=== PATIENT | male | born 1955 | race Caucasian/White ===

== ENCOUNTER 2019-02-01 12:55 | Day surgery (SDC) | payer BC, OTHER ==
[~2019-02-01] VITALS: Ht 188 cm; Wt 105.5 kg
[~2019-02-01 12:55] MED LIST: BENAZEPRIL; METOPROLOL
[2019-02-01 14:23] VITALS: Ht 188 cm; Wt 105.5 kg
[2019-02-01] MEDS ORDERED: CARVEDILOL (15:00)
[2019-02-01] MEDS ORDERED: AMLODIPINE (15:00)
[2019-02-01 15:15] VITALS: BP 143/90; PULSE 68; RESP 20
--- NOTE | 2019-02-01 16:14 | PREAC ---
Date/Time of Note Date/Time of Note DATE: 02/01/19 TIME: 16:12 Anesthesia Eval and Record Evaluation Time Pre-Procedure Interview DATE: 02/01/19 TIME: 16:12 Age 63 Sex male NPO: 8 hrs Preoperative diagnosis abdominal pain, N/V Planned procedure EGD Past Medical History Past Medical History: Includes Cardio: HTN, Dyslipidemia GI: Morbid obesity Surgery & Anesthesia Issues No known issue Meds Anticoagulation: No Beta Dennis within 24 hr: Yes Reported Medications [Amlodipine] No Conflict Check 02/01/19 [Carvedilol] No Conflict Check 02/01/19 Discontinued Reported Medications [Metoprolol] No Conflict Check 04/20/10 Benazepril 04/20/10 Meds reviewed: Yes Allergies Coded Allergies: No Known Drug Allergy (Verified Allergy, Unknown, 04/22/10) Allergies Reviewed: Yes Labs/Studies Labs Reviewed: Reviewed by anesthesiologist test: N/A Studies: ECG Pre-procedure Exam Last vitals BP:134/78, P:74, Spo2:100%, T:98,9 Airway: Adequate mouth opening, Adequate thyromental dist Mallampati: Mallampati II Teeth: Normal Lung: Normal Heart: Normal ASA Physical Status ASA physical status: 3 Emergency: None Planned Anesthetic General/MAC: MAC Planned Pain Management Parenteral pain med Pre-operative Attestations Prior to commencing anesthesia and surgery, the patient was re-evaluated, there was verification of: *The patient's identity *The results of appropriate recent lab work and preoperative vital signs *The above evaluation not changing prior to induction *Anesthetic plan, risk benefits, alternative and complications discussed with patient/family; questions answered; patient/family understands, accepts and wishes to proceed. MYKE IRVIN MD Feb 01, 2019 16:14
[2019-02-01] MEDS ORDERED: PROPOFOL 40 ML ONE (16:15)
[2019-02-01] MEDS ORDERED: LIDOCAINE 2% (SDV) 5 ML INJ ONE (16:15)
--- NOTE | 2019-02-01 16:33 | PAC ---
Date/Time of Note Date/Time of Note DATE: 02/01/19 TIME: 16:32 Post-Anesthesia Notes Post-Anesthesia Note Activity: WNL Respiratory function: WNL Cardiovascular function: WNL Mental status: Baseline Pain reasonably controlled: Yes Hydration appropriate: Yes Nausea/Vomiting absent: Yes Comments BP:154/89, P:82, Spo2:100%, T:98,8 MYKE IRVIN MD Feb 01, 2019 16:33
[2019-02-01 17:01] VITALS: BP 149/94; PULSE 67; RESP 16
== END 2019-02-01 18:23 | disposition home or self-care (01) ==
LOC: GIL 12:55
PROVIDERS: ATTEND Internal Medicine Gastroenterology
DX: K92.1 Melena (principal); K21.0 Gastro-esophageal reflux disease with esophagitis; I10 Essential (primary) hypertension; E78.5 Hyperlipidemia, unspecified
CPT/HCPCS: 43239; 88305; 88312; 88313; Z7610